=== PATIENT | male | born 1965 | race Caucasian/White ===

== ENCOUNTER 2025-01-29 05:50 | Day surgery (SDC) | payer OTHER ==
[~2025-01-29] VITALS: Ht 177.8 cm; Wt 100.0 kg
[~2025-01-29 05:50] MED LIST: MAGNESIUM500 MG PO; MIDAZOLAM HCL 5 MG/5 ML VIAL IV PRN; VITAMIN D3 MA125 MCG PO; fentaNYL citrate 100 MCG/2 ML VIAL IV PRN
[2025-01-29 06:02] VITALS: BP 120/73
[2025-01-29] MEDS ORDERED: LIDOCAINE HCL 1% 5 ML SDV INJ ONE (07:00)
[2025-01-29] MEDS ORDERED: IBLOOD GLUCOSE TEST STRIP 1 EA TEST VI PRN (07:00)
[2025-01-29] MEDS ORDERED: LACTATED RINGER'S 1,000 ML IV SCH (07:00)
[2025-01-29] MEDS ORDERED: LIDOCAINE HCL 2% 5 ML SDV ONE (07:19)
--- NOTE | 2025-01-29 07:29 | NUR ---
PT NOT AVAILABLE FOR VISIT. PROVIDED PRAYER.
--- NOTE | 2025-01-29 08:21 | NUR ---
01/29/25 0821 DeboJenifer 0812-PATIENT ARRIVED TO PACU ON 6L MASK RR EVEN. PATIENT STARTING TO AROUSE OPENING EYES MOVING UPPER EXTREMITIES REACHING FOR OXYGEN MASK ORIENTED TO PACU. IVF INFUSING. SR HR 60'S. 0814-PATIENT PLACED ON RA RR EVEN. REMAINS DROWSY CLOSES EYES. 0820-PATIENT AWAKE DENIES PAIN OR NAUSEA RA 96% PASSING GAS.
[2025-01-29 08:48] VITALS: BP 124/84
--- NOTE | 2025-02-04 16:39 | PATH ---
[facility] [address] [place] [address] Signed SPECIMEN(S): A ASCENDING RIGHT PROXIMAL POLYP SPECIMEN(S): B HEPATIC FLEXURE POLYP SPECIMEN(S): C SPLENIC FLEXURE POLYP SPECIMEN(S): D COLON POLYP AT 35CM SPECIMEN(S): E COLON POLYPS AT 20CM SPECIMEN SOURCE: A. ASCENDING RIGHT PROXIMAL POLYP B. HEPATIC FLEXURE POLYP C. SPLENIC FLEXURE POLYP D. COLON POLYP AT 35CM E. COLON POLYPS AT 20CM CLINICAL HISTORY: Screening. Polyps. A-E) polyp FINAL PATHOLOGIC DIAGNOSIS: A. Ascending/right proximal polyp: - Tubulovillous adenoma (three fragments). B. Hepatic flexure polyp: - Tubulovillous adenoma (one fragment). C. Splenic flexure polyp: - Tubular adenoma (one fragment). D. Colon polyp at 35 cm: - Polypoid colonic mucosa with hyperplastic features (two fragments). - Tubulovillous adenoma (one fragment). E. Colon polyps at 20 cm: - Tubulovillous adenoma with two small, superficial foci of high-grade dysplasia. COMMENT: As part of the [facility], the case has been reviewed by a second Pathologist (SANDI). [facility] MICROSCOPIC EXAMINATION: Histologic sections of all submitted blocks are examined by light microscopy. These findings, together with the gross examination, support the pathologic diagnosis. PATIENT NAME: MARGOT PURCELL JOSE PATHOLOGY DATE OF : 65 REPORT #: [id number] PHYSICIAN: DORINA PATHOLOGY PCP: MARIA NOBLE MD REPORT IS CONFIDENTIAL AND NOT TO BE RELEASED WITHOUT AUTHORIZATION [facility] [address] [place], [place] [address] Signed GROSS DESCRIPTION: A. The specimen, labeled and designated "Follis, ascending/right proximal polyp," is received in formalin and consists of three reyes soft tissue fragments, ranging from 0.2-0.4 cm. Entirely submitted in (A1). B. The specimen, labeled and designated "Follis, hepatic flexure polyp," is received in formalin and consists of three reyes soft tissue fragments, ranging from 0.2-0.3 cm. Entirely submitted in (B1). C. The specimen, labeled and designated "Follis, splenic flexure polyp," is received in formalin and consists of one reyes soft tissue fragment, 0.3 cm. Entirely submitted in (C1). D. The specimen, labeled and designated "Follis, colon polyp at 35 cm," is received in formalin and consists of three reyes soft tissue fragments, ranging from 0.1-0.3 cm. Entirely submitted in (D1). E. The specimen, labeled and designated "Follis, colon polyps at 20 cm," is received in formalin and consists of three reyes soft tissue fragments, ranging from 0.2-1.7 cm. The largest polyp is inked blue and the second largest green. Both are sectioned.Entirely submitted in (E1). AB (under the direct supervision of a pathologist) The Gross Description was prepared using a voice recognition system. The report was reviewed for accuracy; however, sound-alike word errors, addition and/or deletions may occur. If there is any question about this report, please contact Client Services. ADDITIONAL NOTES: Immunohistochemical and/or in situ hybridization studies if performed in this case included appropriate positive controls that reacted as expected. This test was developed and its performance characteristics determined by [facility]. It has not been cleared or approved by the U.S. Food and Drug Administration. The FDA has determined that such clearance or approval is not necessary. This test is used for clinical purposes. It should not be regarded as investigational or for research. [facility] is certified under the Clinical Laboratory Improvement Amendments of 1988 (CLIA) as qualified to perform high complexity clinical laboratory testing. PERFORMING LABORATORY: Technical component was performed by [facility], [facility] [place] [address] (CLIA# [id number]). Professional interpretation was PATIENT NAME: MARGOT PURCELL IV PATHOLOGY DATE OF : 65 REPORT #: [id number] PHYSICIAN: DORINA TORRES PCP: MARIA NOBLE MD REPORT IS CONFIDENTIAL AND NOT TO BE RELEASED WITHOUT AUTHORIZATION [facility] [address] [place], [place] [address] Signed performed by [facility] - [address] [place] [address] (CLIA#: [id number]). Diagnostician: Pawel Quiros MD Pathologist Electronically Signed 02/04/2025 Copies: ~ PATIENT NAME: MARGOT PURCELL IV PATHOLOGY DATE OF : 65 REPORT #: [id number] PHYSICIAN: DORINA PATHOLOGY PCP: MARIA NOBLE MD REPORT IS CONFIDENTIAL AND NOT TO BE RELEASED WITHOUT AUTHORIZATION
== END 2025-01-29 08:55 | disposition home or self-care (01) ==
LOC: OPS 05:50 → DS 05:50 → OPS 07:30 → DS 09:00 → OPS 09:00
PROVIDERS: ATTEND Surgery
PROC: 0DBL8ZZ Excision of Transverse Colon, Via Natural or Artificial Opening Endoscopic (ICD-10-PCS; 2025-01-29)
PROC: 0DBN8ZZ Excision of Sigmoid Colon, Via Natural or Artificial Opening Endoscopic (ICD-10-PCS; 2025-01-29)
PROC: 0DBP8ZZ Excision of Rectum, Via Natural or Artificial Opening Endoscopic (ICD-10-PCS; 2025-01-29)
PROC: 0DBK8ZZ Excision of Ascending Colon, Via Natural or Artificial Opening Endoscopic (ICD-10-PCS; principal; 2025-01-29 07:30)
DX: Z12.11 Encounter for screening for malignant neoplasm of colon (principal); D12.2 Benign neoplasm of ascending colon; D12.3 Benign neoplasm of transverse colon; D12.5 Benign neoplasm of sigmoid colon; K57.30 Diverticulosis of large intestine without perforation or abscess without bleeding; E66.09 Other obesity due to excess calories; Z68.32 Body mass index [BMI] 32.0-32.9, adult
CPT/HCPCS: 00811; J2003; J2704; J7121